=== PATIENT | female | born 1965 | race Two or more races ===

== ENCOUNTER 2024-12-08 12:05 | Day surgery (SDC) | payer MEDICAID, SELFPAY ==
[2024-12-08] VITALS (11 sets, daily range): BP systolic 108–206; BP diastolic 77–110; PULSE 69–75; RESP 12–19; TEMP 36.6–36.8; O2SAT 93–99; BMI 43.9
[2024-12-08] MEDS: fentaNYL CIT INJ 50 mCg/ML AMP 2ML (ASD USE ONLY) IV (14:38)
[2024-12-08] MEDS: MIDAZOLAM INJ 1 MG/ML VIAL 2 ML (ASD USE ONLY) 2 MG IV (14:45)
== END 2024-12-08 15:45 | disposition home or self-care (01) ==
PROVIDERS: PCP Obstetrics & Gynecology; Referring Provider Surgery; Visit Provider Surgery
PROC: 0DBE8ZX Excision of Large Intestine, Via Natural or Artificial Opening Endoscopic, Diagnostic (ICD-10-PCS; CPT 45380; principal; 2024-12-08 13:45)
DX: Z12.11 Encounter for screening for malignant neoplasm of colon (principal)
CPT/HCPCS: 45378; J2250; J3010

== ENCOUNTER 2025-08-31 15:27 | Emergency (ER) | payer MEDICAID, SELFPAY ==
[2025-08-31 15:30] VITALS: BMI 41.2
[2025-08-31 15:51] VITALS: BP 171/97; PULSE 83; RESP 20; TEMP 36.8; O2SAT 95
--- NOTE | 2025-08-31 15:59 | XR_ITS ---
Examination: CT brain head without contrast. 2-D sagittal coronal reconstructions Date and time of exam: August 31, 2025, 1417 hours INDICATIONS: Ground-level fall 2 weeks ago with injury to the head, head pain CTDI: vol (mGy): 57.5 DLP: (mGycm): 1077 Technique: Multiple CT axial sections of the brain have been obtained, 5 mm slice thickness. Contrast has not been administered. 2-D sagittal, coronal reconstructions have been obtained Low dose protocols were performed. One or more of the following dose reduction techniques were used; automated exposure control, adjustment of the mA and/or KV according to patient size, use of iterative reconstruction technique. Findings: No significant ventricular enlargement. Again noted is encephalomalacia in the posterior right parietal lobe compared with 09/15/2019 Intra-axial or extra-axial hemorrhage density is not seen. No mass effect or midline shift Basal cisterns are not remarkable. Fourth ventricle is midline. Cranial vault intact. Impression: Negative for acute hemorrhage, mass effect or midline shift
--- NOTE | 2025-08-31 15:59 | XR_ITS ---
Examination: CT cervical spine without contrast 2-D sagittal reconstructions 2-D coronal reconstructions 3-D reconstructions. Exam date and time: August 31, 2025, 1617 hours INDICATIONS: Patient fell 2 weeks ago with injury to the neck, neck pain CTDI:vol (mGy) 21.6 DLP: (mGycm) 490 Technique: Multiple 2 mm axial sections of the cervical spine have been obtained. The coronal and sagittal reconstructions have been obtained. 3-D reconstructions have been obtained. Low dose protocols were performed. One or more of the following dose reduction techniques were used; automated exposure control, adjustment of the mA and/or KV according to patient size, use of iterative reconstruction technique. Findings: Axial sections demonstrate intact base of the skull. C1 exhibit satisfactory relationship to the odontoid. No acute cervical vertebral body fracture seen. Alignment posterior spinous processes satisfactory. Impression: No acute cervical fracture.
--- NOTE | 2025-08-31 16:51 | PD.EDHEAD ---
ED Head Injury RME/HPI General Chief complaint: Head Injury Stated complaint: fall 2 weeks ago, left side head Time Seen by Provider: 08/31/25 15:43 Arrival date/time: 08/31/25 15:27 60-year-old female presents to the emergency department today stating that she fell approximately 2 weeks ago patient reports it was a trip and fall patient reports incident has been having intermittent headaches and neck pain. Patient does report hitting her head when she fell Limitations: no limitations Related Data Home Medications ?Medication ?Instructions ?Recorded ?Confirmed amlodipine 5 mg tablet 5 mg PO QDAY 08/02/18 01/08/23 atorvastatin 40 mg tablet 40 mg PO QDAY 08/02/18 01/08/23 gabapentin 300 mg capsule 300 mg PO TID 08/02/18 01/08/23 lisinopril 40 mg tablet 40 mg PO QDAY 08/02/18 01/08/23 aspirin 81 mg capsule 81 mg PO QDAY 01/07/23 01/07/23 sitagliptin phosphate 50 1 tab PO BID 01/07/23 01/08/23 mg-metformin 1,000 mg tablet (Janumet) trazodone 150 mg tablet 150 mg PO QDAY 01/07/23 01/08/23 Allergies Allergy/AdvReac Type Severity Reaction Status Date / Time No Known Allergies Allergy Verified 08/31/25 15:28 Review of Systems Review of Systems Systems Reviewed: All systems reviewed, normal except as documented Constitutional Constitutional: Reports system reviewed and no additional complaints, except as documented, Denies fever(s) and Reports headache(s) Eyes Eyes: Reports system reviewed and no additional complaints, except as documented and Denies blurry vision ENT Ears, Nose, Mouth, and Throat: Reports system reviewed and no additional complaints, except as documented, Reports headache(s), Denies nasal congestion and Denies nasal discharge Cardiovascular Cardiovascular: Reports system reviewed and no additional complaints, except as documented, Denies chest pain and Denies dyspnea Respiratory Respiratory: Reports system reviewed and no additional complaints, except as documented, Denies chest congestion, Denies cough and Denies dyspnea Gastrointestinal Gastrointestinal: Reports system reviewed and no additional complaints, except as documented and Denies abdominal pain Integumentary/Breasts Skin/Breast: Reports system reviewed and no additional complaints, except as documented and Denies rash Neurologic Neurologic: Reports system reviewed and no additional complaints, except as documented, Reports as per HPI and Reports headache(s) Past Medical History Past Medical History NEUROLOGIC: Positive Cerebrovascular Accident (5 year ago); Negative Seizures CARDIAC: Positive Cardiac Disorders, Hypercholesterolemia and Hypertension; Negative Congestive Heart Failure RESPIRATORY: Negative Chronic Obstructive Pulmonary Disease (COPD) or Asthma GASTROINTESTINAL: Negative Gastrointestinal Disorders or Obesity GENITOURINARY: Negative Genitourinary Disorders or Renal Disease REPRODUCTIVE: Positive Previous Pregnancies; Negative Pelvic Inflammatory Disease MUSCULOSKELETAL: Negative Musculoskeletal Disorders ENDOCRINE: Positive Endocrine Disorders and Diabetes Mellitus Type 2; Negative Diabetes Mellitus Type 1 HEMATOLOGIC: Negative Blood Disorders or Sickle Cell Disease PSYCHO/SOCIAL: Positive Depression and Anxiety OTHER HISTORY: Negative Hospitalization, Autoimmune Disease, Down Syndrome, Developmental Delay, Falls, Blood Transfusions, Anesthesia Reactions, MRSA, Chicken Pox, Measles, Mumps, Clostridium Difficile or Cancer Family History FAMILY HISTORY: Positive Family Respiratory Disorders, Family Cardiac Disorders, Family Cancer and Family Surgery; Negative Family Neurologic Problems, Family Psychiatric Problems, Family Gastrointestinal Problems or Family Anesthesia Reaction Social History SMOKING STATUS: Never smoker SUBSTANCE USE: does not use ED Exam General Limitations: Present no limitations General appearance: Present alert and in no apparent distress Head Head exam: Present atraumatic, normocephalic and normal inspection Eye Eye exam: Present normal appearance, PERRL and EOMI; Absent conjunctival injection ENT ENT exam: Present normal exam, normal oropharynx and mucous membranes moist Neck Neck exam: Present normal inspection, full ROM and trachea midline Chest Chest inspection: Present normal inspection and symmetric chest wall rise Respiratory Respiratory exam: Present normal lung sounds bilaterally Cardiovascular Cardiovascular exam: Present regular rate, normal rhythm and normal heart sounds Abdominal Exam Abdominal exam: Present soft and normal bowel sounds Extremities Exam Extremities exam: Present normal inspection and full ROM Back Exam Back exam: Present normal inspection and full ROM Neurological Exam Neurological exam: Present alert, oriented X3, CN II-XII intact, normal gait and reflexes normal; Absent motor sensory deficit Psychiatric Psychiatric exam: Present normal affect and normal mood Skin Skin exam: Present warm, dry, intact and normal color Course Quality Measures none Orders Category Date Time Status CT cervical spine wo con Stat Exams 08/31/25 15:[address] head/brain wo con Stat Exams 08/31/25 15:59 Completed Vital Signs Vital signs: Vital Signs Temperature 98.2 F 08/31/25 15:51 Pulse Rate 83 08/31/25 15:51 Respiratory Rate 20 08/31/25 15:51 Blood Pressure 171/97 H 10/09/25 15:51 Pulse Oximetry (%) 95 08/31/25 15:51 Oxygen Delivery Method Room Air 08/31/25 15:51 O2 saturation 95% room air within normal limits Head Injury MDM Narrative MDM Narrative:: 60-year-old female presents to the emergency department today stating that she fell approximately 2 weeks ago patient reports it was a trip and fall patient reports incident has been having intermittent headaches and neck pain. Patient does report hitting her head when she fell On exam patient well-appearing patient does not appear ill or toxic no acute stress patient walks steady gait Imaging obtained no acute emergent findings noted CT scan of the head and cervical spine are within normal limits As patient has no abnormal findings patient walks with steady gait has no chest pain or shortness of breath patient be discharged home Patient discharged home in no distress to follow-up with primary care doctor in the next 24 to 48 hours and for any worsening symptoms to return to the ER immediately Patient data External records reviewed:: [facility] previous records Clinical information provided by:: patient Social determinants that could affect healthcare access:: none Patient has the following chronic illnesses:: See history How is presenting disease/condition affected by chronic disease/condition?: caused by Evaluation data The following diagnostics were reviewed and interpreted by me:: radiology exam(s) Lab and/or radiology exams considered but not ordered:: Radiology obtain Interpretation Summary: Reviewed by me Medications / Prescriptions Medications or Prescriptions considered but not ordered:: No meds Medication administrations:: No meds Consultations Consultation(s) initiated? (list below): No Diagnosis Differential diagnosis head injury: concussion without loss of consciousness, subdural hematoma and concussion with loss of consciousness Most likely diagnosis given after review of the tests above:: Closed injury Admission Indicated Admission indicated?: not indicated Admission Request Was there a request for admission?: No Disposition Plan Disposition Plan: Discharge Discharge Attestation Discharge Attestation: The patient and all family members were given an opportunity to ask questions and understood the discharge instructions. Discharge instructions specifically effects, indications for sooner follow up or return to the emergency department, and the expected course of current diagnosis. Patient condition: Stable Discharge Plan Plan Patient Disposition: HOME (Self Care) Discharge Disposition comment: Stable Prescriptions/Referrals Prescriptions/Med Rec: No Action atorvastatin 40 mg Tablet 40 mg PO QDAY amlodipine 5 mg Tablet 5 mg PO QDAY gabapentin 300 mg Capsule 300 mg PO TID lisinopril 40 mg Tablet 40 mg PO QDAY trazodone 150 mg Tablet 150 mg PO QDAY Janumet 50-1,000 mg Tablet 1 tab PO BID aspirin 81 mg Capsule 81 mg PO QDAY Referrals: Kleber Hernandez MD [Primary Care Provider, Family Practice] - In 1 week Problem List Clinical Impression: Concussion syndrome Patient/Caregiver Discharge Instructions Education Materials: Coping with Concussion Additional Instructions: Please follow up with your primary care doctor in the next 24-48hrs for any worsening symptoms return here immediately Print Language: Pakistani Stand Alone Forms: Angelica Award Info., Patient Portal Info Letter PA/SINGLE RESOURCE BOSS Supervising Physician PA/SINGLE [employer]OURCE BOSS Supervising Physician: Dr. leong
== END 2025-08-31 17:49 | disposition home or self-care (01) ==
PROVIDERS: Emergency Provider Family Medicine; PCP Family Medicine
DX: S09.90XA Unspecified injury of head, initial encounter (principal); F07.81 Postconcussional syndrome; S19.9XXA Unspecified injury of neck, initial encounter; W01.0XXA Fall on same level from slipping, tripping and stumbling without subsequent striking against object, initial encounter
CPT/HCPCS: 70450; 72125; 99283